=== PATIENT | female | born 1990 | race Caucasian/White ===

== ENCOUNTER 2017-12-28 23:34 | Emergency (ER) | payer OTHER ==
[~2017-12-28] VITALS: Ht 175.3 cm; Wt 52.0 kg
[2017-12-28] MEDS ORDERED: mupirocin 2% ointment 22GM TP STA (23:44)
[2017-12-28] MEDS ORDERED: TETanus/Pertussis (Acell)/Diphther VAC/PF (Tdap-Adult) 0.5ml syringe IM ONE (23:45)
[2017-12-28] MEDS ORDERED: gentamicin in saline, iso-osm 80 MG/50 ML premix IV ONE (23:45)
[2017-12-28] MEDS ORDERED: ceFAZolin 1000mg inj IV ONE (23:45)
[2017-12-29] MEDS ORDERED: cefazolin/dext.iso 2gm/50ml 50 ML IV ONE (00:25)
[2017-12-29] MEDS ORDERED: gentamicin 40 MG/1 ML inj ONE (00:25)
[2017-12-29] MEDS ORDERED: HYDROmorphone 2mg/ml vial IV ONE (00:45)
[2017-12-29] MEDS ORDERED: HYDROmorphone 1 mg/ml syringe IV ONE (00:50)
[2017-12-29] MEDS ORDERED: HYDROmorphone inj. 0.5 MG/0.5 ML DISP.SYRIN ONE (00:51)
[2017-12-29] MEDS ORDERED: ondansetron/PF 4mg/2ml inj IV ONE (01:00)
[2017-12-29 01:20] VITALS: BP 118/42
[2017-12-29] MEDS ORDERED: diphenhydrAMINE 50 mg/ml inj IV ONE (01:25)
[2017-12-29] MEDS ORDERED: CEPH-572 PO (01:26)
[2017-12-29] MEDS ORDERED: HYDR-565 PO (01:26)
[2017-12-29] MEDS ORDERED: ONDA4TAB9 PO (01:26)
[2017-12-29] MEDS ORDERED: HYDROcodone/acetaminophen 10/325mg tab PO ONE (01:30)
== END 2017-12-29 02:27 | disposition home or self-care (01) ==
LOC: ER 23:35
DX: S62.601B Fracture of unspecified phalanx of left index finger, initial encounter for open fracture (principal); S69.92XA Unspecified injury of left wrist, hand and finger(s), initial encounter; Z88.8 Allergy status to other drugs, medicaments and biological substances; W23.0XXA Caught, crushed, jammed, or pinched between moving objects, initial encounter; Y93.89 Activity, other specified; Y92.89 Other specified places as the place of occurrence of the external cause; Y99.8 Other external cause status
CPT/HCPCS: 11760; 26755; 73140; 90471; 90715; 96365; 96375; 99284; A6222; A6449; J0690; J1170; J1200; J1580; J2405; J7030

== ENCOUNTER 2018-01-02 16:22 | Emergency (ER) | payer OTHER ==
[~2018-01-02] VITALS: Ht 175.3 cm; Wt 52.0 kg
[~2018-01-02 16:22] MED LIST: CEPH-572 PO; HYDR-565 PO; ONDA4TAB9 PO
[2018-01-02] MEDS ORDERED: HYDROcodone/acetaminophen 10/325mg tab PO ONE (18:55)
[2018-01-02] MEDS ORDERED: ibuprofen 200mg tablet PO ONE (18:55)
[2018-01-02] MEDS ORDERED: ONDA4TAB12 PO (19:46)
[2018-01-02] MEDS ORDERED: BACDS PO (19:46)
[2018-01-02] MEDS ORDERED: HYDR-3965 PO (19:46)
[2018-01-02 19:56] VITALS: BP 121/98
== END 2018-01-02 19:57 | disposition left against medical advice (07) ==
LOC: ER 16:23
DX: S62.601D Fracture of unspecified phalanx of left index finger, subsequent encounter for fracture with routine healing (principal); Z88.8 Allergy status to other drugs, medicaments and biological substances; Z79.899 Other long term (current) drug therapy; W23.0XXD Caught, crushed, jammed, or pinched between moving objects, subsequent encounter
CPT/HCPCS: 73140; 99284; A6222

== ENCOUNTER 2018-01-11 19:14 | Emergency (ER) | payer SELFPAY ==
[~2018-01-11] VITALS: Ht 175.3 cm; Wt 52.3 kg
[~2018-01-11 19:14] MED LIST changes: +BACDS PO; -CEPH-572 PO; +HYDR-3965 PO; +ONDA4TAB12 PO
[2018-01-11 21:22] VITALS: BP 114/74
== END 2018-01-11 21:25 | disposition home or self-care (01) ==
LOC: ER 19:14
DX: Z48.02 Encounter for removal of sutures (principal); Z88.0 Allergy status to penicillin; W23.0XXD Caught, crushed, jammed, or pinched between moving objects, subsequent encounter
CPT/HCPCS: 99281

== ENCOUNTER 2018-01-18 20:24 | Emergency (ER) | payer OTHER ==
[~2018-01-18] VITALS: Ht 175.3 cm; Wt 52.3 kg
[~2018-01-18 20:24] MED LIST changes: -BACDS PO
[2018-01-18] MEDS ORDERED: LIDOcaine 1.5% w/epinephrine 1:200,000 5ml ampul IJ ONE (21:25)
[2018-01-18 22:30] VITALS: BP 116/69
== END 2018-01-18 22:31 | disposition home or self-care (01) ==
LOC: ER 20:25
DX: S61.211D Laceration without foreign body of left index finger without damage to nail, subsequent encounter (principal); Z79.899 Other long term (current) drug therapy; X58.XXXD Exposure to other specified factors, subsequent encounter
CPT/HCPCS: 64450; 99284; A6222; A6402; J3490; 99281

== ENCOUNTER 2023-04-23 08:19 | Emergency (ER) | payer OTHER ==
[~2023-04-23] VITALS: Ht 175.3 cm; Wt 48.4 kg
[~2023-04-23 08:19] MED LIST changes: -HYDR-3965 PO; -HYDR-565 PO; -ONDA4TAB9 PO
[2023-04-23 08:56] VITALS: BP 115/86; PULSE 92; RESP 18; TEMP 97.4; O2SAT 100
[2023-04-23 09:40] LABS: URINE HCG NEGATIVE (NEG)
[2023-04-23 09:43] LABS: CLARITY,URINE CLOUDY (Clear); COLOR,URINE YELLOW (Yellow); GLUCOSE, URINE NEGATIVE (Neg); KETONES,URINE NEGATIVE (Neg); LEUKOCYTE ESTERASE ,URINE NEGATIVE (Neg); NITRITES, URINE NEGATIVE (Neg); OCCULT BLOOD,URINE SMALL (Neg); PROTEIN,URINE NEGATIVE (Neg); UROBILINOGEN,URINE 0.2 E.U/dL (0.2-1.0)
[2023-04-23 09:59] LABS: MUCUS STRANDS MANY /LPF (Neg); SQUAMOUS EPITHELIAL CELL,UR MANY /LPF (FEW); UA COLLECTION TYPE CLN CATCH MIDSTREAM
[2023-04-23 10:00] LABS: TRANSITIONAL EPI CELLS,URINE FEW /HPF
[2023-04-23 10:01] LABS: BACTERIA,URINE 2+ /HPF (Neg); CAL OXALATE CRYSTALS 2+ /HPF (NEGATIVE)
[2023-04-23 10:02] LABS: RBC,URINE 0-2 /HPF (0-2); WBC,URINE 0-4 /HPF (0-4)
[2023-04-23 10:04] LABS: AMORPHOUS PHOSPHATES 2+
[2023-04-23 11:42] LABS: BASOPHILS % (AUTO) 0.2 % (0-1); EOSINOPHILS % (AUTO) 0.1 % (0-6); HEMATOCRIT 38.4 % (35.0-45.0); HEMOGLOBIN 12.6 g/dl (12.0-16.0); LYMPHOCYTES # (AUTO) 0.8 X10'3 (1.1-4.8); LYMPHOCYTES % (AUTO) 5.9 % (21-51); MEAN CORPUSCULAR HEMOGLOBIN 28.7 PG (27.0-31.0); MEAN CORPUSCULAR HGB CONC 32.7 g/dL (33.0-36.5); MEAN CORPUSCULAR VOLUME 87.8 FL (78-98); MONOCYTES # (AUTO) 0.6 X10'3 (0-0.9); MONOCYTES % (AUTO) 4.2 % (2-12); NEUTROPHILS # (AUTO) 12.3 X10'3 (1.8-7.7); NEUTROPHILS % (AUTO) 89.6 % (42-75); PLATELET COUNT 350 X10'3 (140-440); RED BLOOD COUNT 4.37 X10'6 (4.20-5.60); WHITE BLOOD COUNT 13.7 X10'3 (4.5-11.0)
[2023-04-23 11:53] LABS: ALANINE AMINOTRANSFERASE 14 U/L (12-78); ALBUMIN/GLOBULIN RATIO 1.1 (1.1-1.5); ALKALINE PHOSPHATASE 53 IU/L (46-116); ANION GAP 8 (8-16); ASPARTATE AMINO TRANSFERASE 11 U/L (10-37); BILIRUBIN,TOTAL 0.3 MG/DL (0.1-1.0); BLOOD UREA NITROGEN 13 MG/DL (7-18); BUN/CREATININE RATIO 21.7 (10.0-20.0); CALCIUM 8.8 MG/DL (8.5-10.1); CHLORIDE 103 MMOL/L (99-107); GLUCOSE 115 MG/DL (70-104); POTASSIUM 3.8 MMOL/L (3.5-5.1); SODIUM 137 MMOL/L (135-145); TOTAL CARBON DIOXIDE 25.9 MMOL/L (24-32); TOTAL PROTEIN 7.5 G/DL (6.4-8.2); eGFR > 90 ML/MIN
[2023-04-23] MEDS ORDERED: OXYC-658 PO (13:00)
[2023-04-23] MEDS ORDERED: FLO0.4C PO (13:00)
[2023-04-23] MEDS ORDERED: HYDROcodone/acetaminophen 10/325mg tab PO ONE (13:05)
[2023-04-23] MEDS ORDERED: ondansetron 4mg rapidly disintigrating tab PO ONE (13:05)
== END 2023-04-23 13:25 | disposition home or self-care (01) ==
LOC: ER 08:20
DX: N20.0 Calculus of kidney (principal); G43.909 Migraine, unspecified, not intractable, without status migrainosus; Z88.1 Allergy status to other antibiotic agents; Z79.899 Other long term (current) drug therapy
CPT/HCPCS: 36415; 74176; 80053; 81001; 81025; 85025; 99284